=== PATIENT | male | born 1995 | race American Indian/Alaskan Native ===

== ENCOUNTER 2018-06-01 23:38 | Emergency (ER) | payer OTHER ==
[2018-06-01 23:58] VITALS: BP 137/95
[2018-06-02] MEDS ORDERED: VICKS SINEX NS ONE (00:24)
[2018-06-02] MEDS ORDERED: ZOFRAN ODT PO ONE (00:31)
[2018-06-02] MEDS ORDERED: ZOFRAN ODT ONE (00:34)
--- NOTE | 2018-06-02 00:51 | Emergency Department Report ---
ED ENT HPI - General Chief complaint: Nosebleed Stated complaint: NOSEBLEED Time Seen by Provider: 06/02/18 00:24 Source: patient Mode of arrival: Ambulatory Limitations: No Limitations - History of Present Illness Initial comments: Patient is presents with nosebleed from right nare, moderate bleeding , not improving with direct preor symptoms no ssure, there is no dizziness no light headedness no trauma no n/v, pt is a/o x 3 [address] self to [facility] complaint: epistaxis Onset/Timin -: hour(s) (advised) Location: nose Severity: moderate Severity scale (0 -10): 5 Quality: other (epistaxis) Consistency: constant Improves with: none Worsens with: none - Related Data Previous Rx's Medication Instructions Recorded Last Taken Type Sodium Chloride [Saline Nasal 2 applicator NS BID #1 1000units 06/02/18 Unknown Rx [facility]] Allergies Allergy/AdvReac Type Severity Reaction Status Date / Time No Known Allergies Allergy Verified 06/02/18 00:33 ED Dental HPI - General Chief complaint: Nosebleed Stated complaint: NOSEBLEED Time Seen by Provider: 06/02/18 00:24 Source: patient Mode of arrival: Ambulatory Limitations: No Limitations - Related Data Previous Rx's Medication Instructions Recorded Last Taken Type Sodium Chloride [Saline Nasal 2 applicator NS BID #1 1000units 06/02/18 Unknown Rx [facility]] Allergies Allergy/AdvReac Type Severity Reaction Status Date / Time No Known Allergies Allergy Verified 06/02/18 00:33 ED Review of Systems ROS: Stated complaint: NOSEBLEED Other details as noted in HPI Constitutional: denies: chills, fever Eyes: denies: eye pain, eye discharge, vision change ENT: epistaxis, congestion. denies: ear pain, throat pain, dental pain (is), hearing loss Respiratory: denies: cough, shortness of breath, wheezing Cardiovascular: denies: chest pain, palpitations Endocrine: no symptoms reported Gastrointestinal: denies: abdominal pain, nausea, diarrhea Genitourinary: as per HPI Musculoskeletal: denies: back pain, joint swelling, arthralgia Skin: denies: rash, lesions Neurological: denies: headache, weakness, paresthesias Psychiatric: denies: anxiety, depression Hematological/Lymphatic: denies: easy bleeding, easy bruising ED Past Medical Hx - Past Medical History Previous Medical History?: No - Surgical History Past Surgical History?: No - Social History Smoking Status: Never Smoker Substance Use Type: None - Medications Home Medications: Home Medications Medication Instructions Recorded Confirmed Last Taken Type Sodium Chloride [Saline Nasal 2 applicator NS BID #1 1000units 06/02/18 Unknown Rx [facility]] ED Physical Exam - General Limitations: No Limitations General appearance: alert (Eid is), in no apparent distress - Head Head exam: Present: atraumatic, normocephalic - Eye Eye exam: Present: normal appearance, PERRL, EOMI Pupils: Present: normal accommodation - ENT ENT exam: Present: mucous membranes moist, TM's normal bilaterally, normal external ear exam, other (epistaxis right nare anterior bleeding ) - Neck Neck exam: Present: normal inspection, full ROM. Absent: tenderness, meningism us, lymphadenopathy, thyromegaly - Respiratory Respiratory exam: Present: normal lung sounds bilaterally. Absent: respiratory distress, wheezes, stridor, chest wall tenderness - Cardiovascular Cardiovascular Exam: Present: regular rate, normal rhythm, normal heart sounds. Absent: systolic murmur, diastolic murmur, rubs, gallop - GI/Abdominal GI/Abdominal exam: Present: soft, normal bowel sounds. Absent: tenderness, rebound, bruit, hernia - Rectal Rectal exam: Present: deferred (is) - Extremities Exam Extremities exam: Present: normal inspection, full ROM, tenderness - Back Exam Back exam: Present: normal inspection, full ROM. Absent: tenderness, CVA tenderness (R), CVA tenderness (L), muscle spasm, paraspinal tenderness, vertebral tenderness, rash noted - Neurological Exam Neurological exam: Present: alert, oriented X3, CN II-XII intact, normal gait, reflexes normal - Psychiatric Psychiatric exam: Present: normal affect, normal mood - Skin Skin exam: Present: warm, dry, intact, normal color. Absent: rash ED Course Vital Signs 06/01/18 23:56 Temperature 97.5 F L Pulse Rate 93 H Respiratory 18 Rate Blood Pressure 137/95 O2 Sat by Pulse 99 Oximetry - Procedure Description Procedures done: nasal packing 4x4 with Afrin nasal spray, improving symptoms, pt instructed in direct pressue technigue ED Medical Decision Making - EKG Data Interpretation: normal EKG - Radiology Data Radiology results: pending, report reviewed, image reviewed - Medical Decision Making pt given nosel bleed teachinglupe are improved plan dc to home in stable I fcondition, morning nasal location , had with afrin of Critical care attestation.: If time is entered above; I have spent that time in minutes in the direct care of this critically ill patient, excluding procedure time. ED Disposition Clinical Impression: Epistaxis Disposition: DC-01 TO HOME OR SELFCARE Is pt being admited?: No Does the pt Need Aspirin: No Condition: Stable Instructions: Epistaxis (ED) Additional Instructions: nosebleed marcelina pizano: pt is sidl re Prescriptions: Sodium Chloride [Saline Nasal [facility]] 2 applicator NS BID #1 1000units Referrals: [facility] [Other] - 3-5 Days Forms: Work/School Release Form(ED) Time of Disposition: 02:43
== END 2018-06-02 03:16 | disposition home or self-care (01) ==
LOC: ED 23:38
DX: R04.0 Epistaxis (principal)
CPT/HCPCS: 99282; Q0162